=== PATIENT | female | born 1980 | race African-American/Black ===

== ENCOUNTER 2020-06-23 22:30 | Emergency (ER) | payer BC ==
--- NOTE | 2020-06-23 22:39 | EDM.PDOC ---
ED HPI GENERAL MEDICAL PROBLEM - General Chief Complaint: Behavioral/Psych Stated Complaint: intentional overdose Time Seen by Provider: 06/23/20 22:30 Source of Information: Reports: Patient, EMS, Old Records (No [facility] records available), Police ([employer] from [facility], James Garay), Other (Friend, Antonette) History Limitations: Reports: No Limitations - History of Present Illness INITIAL COMMENTS - FREE TEXT/NARRATIVE: The patient was brought to the emergency room via ambulance with EMT accompaniment with no treatment in route. Note that at about 2030 hrs. this evening the patient became extremely depressed and did take remaining medications of omeprazole, 20 mg tablets, #90, Voltaren 75 mg tablets, #28, and misoprostol 200 mcg tablets, #28, with all bottles last refilled on 04/05/2020. The patient has been noncompliant with the above medications and does not know how many pills were actually in each of these bottles. She had second thoughts immediately after taking the above medications and forced herself to vomit with vomited pills noted in the toilet and garbage can by the ekg tech upon their arrival. No recent history of abdominal pain, heartburn, nausea, diarrhea, melena, gross hematochezia, or any food intolerance, including fatty foods, etc.. The patient also denies any recent fever, cough, wheezing, dyspnea, etc.. The patient has had progressive depression and increased job stressors during the last 3 years with also patient having emotional problems secondary to multiple deaths in her family's during that time. She denies any pain or discomfort. Onset: Today, Sudden Onset Date: 06/23/20 Onset Time: 20:30 Duration: Improving Improves with: Reports: None Worsens with: Reports: None Context: Reports: Other (As above). Denies: Sick Contact, Trauma Associated Symptoms: Reports: Nausea/Vomiting (Intentional emesis as above). 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 Denies: Hard of Hearing, Impaired Vision, Otitis Media Other HEENT History: No history of diabetic retinopathy. Cardiovascular History: Reports: Hypertension, Other (See Below). Denies: Afib, Aneurysm, Arrhythmia, Blood Clots/VTE/DVT, CAD, Heart Murmur, High Cholesterol, TN, Syncope Other Cardiovascular History: She does not know her cholesterol status. Respiratory History: Reports: None. Denies: Asthma, Bronchitis, Recurrent, COPD, Intubation, Previous, PE, Pneumonia, Recurrent, Pneumothorax, Sleep Apnea, TB Gastrointestinal History: Reports: GERD. 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 Denies: Dysfunctional Uterine Bleeding, Endometriosis, Fibroids, Spontaneous : 2 Para: 2 LMP (Approximate): Other (See Below) Other MANUAL MACHINIST History: LMP on 06/13/2020. Full term without complications during pregnancies or deliveries Musculoskeletal History: Reports: Arthritis, Back Pain, Chronic, Osteoarthritis. Denies: Fracture, Gout, Neck Pain, Chronic, RA, SLE Neurological History: Reports: None. Denies: Cerebral Aneurysms, Concussion, CVA, Headaches, Chronic, Head Trauma, Migraines, MS, Neuropathy, Diabetic, Neuropathy, Peripheral, Parkinson's, Seizure, TIA Psychiatric History: Reports: Anxiety, Depression. Denies: Abuse, Victim of, ADD, ADHD, Addiction, Psych Hospitalization(s), PTSD, Suicide Attempt, Suicidal Ideation Endocrine/Metabolic History: Reports: Diabetes, Type II, Obesity/BMI 30+. Denies: Diabetes, Type I, Diabetes Mellitus, Type 3c, Hypothyroidism, IDDM Hematologic History: Reports: Anemia, Iron Deficiency. Denies: Blood Transfusion(s) Immunologic History: Denies: AIDS, HIV, SLE Oncologic (Cancer) History: Reports: None. Denies: Basal Cell Carcinoma, Breast, Cervix, Colon, Leukemia, Lymphoma, Malignant Melanoma, Non-Hodgkin's Lymphoma, Ovarian, Squamous Cell Carcinoma, Uterine Dermatologic History: Reports: None. Denies: Eczema, Psoriasis - Infectious Disease History Infectious Disease History: Reports: Chicken Pox. Denies: C-Difficile, Measles, Meningitis, Mononucleosis, MRSA, Mumps, Pertussis (Whooping Cough), Rheumatic Fever, Rubella, Scarlet Fever, Shingles, TB, VRE - Past Surgical History Head Surgeries/Procedures: Reports: None HEENT Surgical History: Reports: Oral Surgery, Other (See Below). Denies: Adenoidectomy, Cataract Surgery, Eye Surgery, Laser Surgery, LASIK, Myringotomy w Tube(s), Naso-Sinus Surgery, Tonsillectomy Other HEENT Surgeries/Procedures: Tooth extractions. Cardiovascular Surgical History: Reports: None. Denies: Varicose Respiratory Surgical History: Reports: None. Denies: Thoracentesis GI Surgical History: Reports: None. Denies: Appendectomy, Cholecystectomy, Colonoscopy, EGD, Hernia, Abdominal, Hernia, Inguinal, Hernia Repair/Other Female Surgical History: Reports: None. Denies: Section, D&C, Hysterectomy, Salpingo-Oophorectomy, Tubal Ligation Endocrine Surgical History: Reports: None. Denies: Thyroid Biopsy Neurological Surgical History: Reports: None. Denies: C-Spine, Discectomy, Laminectomy, Lumbar Spine, Sacral Spine, Spinal Fusion, Thoracic Spine, Vertebroplasty Musculoskeletal Surgical History: Reports: None. Denies: Arthroscopic Procedure, Carpal Tunnel, Ganglion Cyst, Joint Replacement, ORIF, Shoulder Surgery Oncologic Surgical History: Reports: None Dermatological Surgical History: Reports: None - Past Imaging History Past Imaging History: Reports: Ultrasound (OB ultrasounds) Social & Family History - Tobacco Use Smoking Status *Q: Current Every Day Smoker Tobacco Use Within Last Twelve Months: Cigarettes Years of Tobacco use: 28 Packs/Tins Daily: 1 Packs/Tins Daily Comment: Started smoking at age 12 with maximum use of 2 packs/day. Used Tobacco, but Quit: No Smoking Cessation Information Provided To Patient: Yes Second Hand Smoke Exposure: No Second Hand Smoke Education Provided: No - Caffeine Use Caffeine Use: Reports: Soda (12 sodas per day). Denies: Coffee, Energy Drinks, Tea - Alcohol Use Alcohol Use History: Yes Days Per Week of Alcohol Use: 3 Number of Drinks Per Day: 2 Number of Drinks Per Day Comment: Usually mixed drinks or coolers. No previous DWIs, problems with alcohol abuse, etc. Total Drinks Per Week: 6 Date of Last Drink: 06/23/20 Alcohol Use in Last Twelve Months: Yes - Recreational Drug Use Recreational Drug Use: Yes Drug Use in Last 12 Months: No Recreational Drug Type: Reports: Marijuana/Hashish (Between ages 17 and 20). 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 ED EXAM, GENERAL - Physical Exam Exam: See Below Exam Limited By: No Limitations General Appearance: WD/WN, No Apparent Distress, Anxious (Moderate) Eye Exam: Bilateral Eye: EOMI, Normal Inspection (No nystagmus), PERRL Ears: Normal External Exam, Normal Canal, Hearing Grossly Normal, Normal TMs Nose: Normal Inspection, Normal Mucosa, No Blood Throat/Mouth: Normal Inspection, Normal Lips, Normal Teeth, Normal Gums, Normal Oropharynx, Normal Voice, No Airway Compromise. No: Dysphagia, Perioral Cyanosis Head: Atraumatic, Normocephalic. No: Facial Swelling, Facial Tenderness, Sinus Tenderness Neck: Normal Inspection, Supple, Non-Tender, Full Range of Motion. No: Carotid Bruit, Lymphadenopathy (L), Lymphadenopathy (R), Thyromegaly Respiratory/Chest: No Respiratory Distress, Lungs Clear, Normal Breath Sounds, No Accessory Muscle Use, Chest Non-Tender. No: Pleural Rub, Retractions Cardiovascular: Normal Peripheral Pulses, Regular Rate, Rhythm, No Edema, No Gallop, No JVD, No Murmur, No Rub. No: Gallop/S3, Gallop/S4, Friction Rub Peripheral Pulses: 2+: Radial (L), Radial (R) GI/Abdominal: Normal Bowel Sounds, Soft, Non-Tender, No Organomegaly, No Distention, No Abnormal Bruit, No Mass, Pelvis Stable, Other (Obese). No: Guarding (Female) Exam: Deferred Rectal (Female) Exam: Deferred Back Exam: Normal Inspection, Full Range of Motion. No: CVA Tenderness (L), CVA Tenderness (R), Muscle Spasm Extremities: Normal Inspection, Normal Range of Motion, Non-Tender, No Pedal Edema, Normal Capillary Refill. No: Tony's Sign Neurological: Alert, Oriented, CN II-XII Intact, Normal Cognition, Normal Gait, No Motor/Sensory Deficits, Other (Mild intoxication) Psychiatric: Anxious (Moderate), Depressed Mood (Moderate with adequate eye contact and resolved suicidal ideation), Tearful Skin Exam: Warm, Dry, Intact, Normal Color, No Rash, Stud(s) (tongue), Tattoo(s) (Multiple). No: Diaphoretic, Wound/Incision Lymphatic: No Adenopathy Course - Vital Signs Last Recorded V/S: Last Vital Signs Temp 36.6 C 06/23/20 22:36 Pulse 69 06/23/20 23:45 Resp 19 06/23/20 23:45 BP 149/88 H 06/23/20 23:45 Pulse Ox 99 06/23/20 23:45 Vital Signs (72 hours) 06/23/20 06/23/20 06/23/20 22:36 22:57 23:15 Temperature [ 36.6 C Temporal] Pulse, 78 89 70 Peripheral [ Pulse Oximetry] Respiratory 14 16 16 Rate Blood Pressure 136/84 148/65 H 147/86 H [Right Upper Arm] O2 Sat by Pulse 100 98 100 Oximetry 06/23/20 06/23/20 06/23/20 23:16 23:30 23:45 Temperature [ Temporal] Pulse, 70 67 69 Peripheral [ Pulse Oximetry] Respiratory 16 18 19 Rate Blood Pressure 144/93 H 144/91 H 149/88 H [Right Upper Arm] O2 Sat by Pulse 100 99 99 Oximetry - Orders/Labs/Meds Labs: Laboratory Tests 06/23/20 06/23/20 06/23/20 Range/Units 22:45 22:50 22:50 WBC 6.7 (4.0-10.2) K/uL RBC 4.00 (3.77-5.09) M/uL Hgb 7.9 L (11.7-15.5) g/dL Hct 26.5 L (34.0-46.0) % MCV 66.3 L (84.0-98.0) fL MCH 19.8 L (28.2-33.3) pg MCHC 29.8 L (31.7-36.0) g/dL RDW 21.0 H (11.2-14.1) % Plt Count 465 H (150-350) K/uL Neut % (Auto) 47.4 (45.0-80.0) % Lymph % (Auto) 42.1 (10.0-50.0) % Baker % (Auto) 7.5 (2.0-14.0) % Eos % (Auto) 2.7 (0.0-5.0) % Baso % (Auto) 0.3 (0.0-2.0) % Neut # (Auto) 3.15 (1.40-7.00) K/uL Lymph # (Auto) 2.80 (0.50-3.50) K/uL Baker # (Auto) 0.50 (0.00-1.00) K/uL Eos # (Auto) 0.18 (0.00-0.50) K/uL Baso # (Auto) 0.02 (0.00-0.20) K/uL Sodium 142 (136-145) mmol/L Potassium 3.3 L (3.5-5.1) mmol/L Chloride 105 (98-107) mmol/L Carbon Dioxide 27.2 (21.0-32.0) mmol/L BUN 5 L (7-18) mg/dL Creatinine 0.64 (0.51-1.17) mg/dL Est Cr Clr Drug Dosing 115.51 mL/min Estimated GFR (MDRD) > 60 mL/min Glucose 146 H (74-106) mg/dL Calcium 8.1 L (8.5-10.1) mg/dL Magnesium 1.9 (1.8-2.4) mg/dL Iron 14 L (50-175) ug/dL TIBC 436 (250-450) ug/dL % Saturation 3.70538 Ferritin 5 L (8-388) ng/mL Total Bilirubin 0.5 (0.2-1.0) mg/dL AST 11 L (15-37) U/L ALT 19 (12-78) U/L Alkaline Phosphatase 55 (46-116) IU/L Total Protein 7.5 (6.4-8.2) g/dL Albumin 3.4 (3.4-5.0) g/dL TSH, Ultra Sensitive 0.922 (0.358-3.740) mIU/mL Specimen Type Urine Color Urine Appearance Urine pH (5.0-9.0) Ur Specific [place] (1.005-1.030) Urine Protein (NEGATIVE) mg/dL Urine Glucose (UA) (NEGATIVE) mg/dL Urine Ketones (NEGATIVE) mg/dL Urine Occult Blood (NEGATIVE) Urine Nitrite (NEGATIVE) Urine Bilirubin (NEGATIVE) Urine Urobilinogen (0.2-1.0) E.U./dL Ur Leukocyte Esterase (NEGATIVE) Urine RBC /HPF Urine WBC /HPF Ur Epithelial Cells /LPF Urine Bacteria (NONE TO FEW) /HPF Urine Opiates Screen (NEGATIVE) Ur Buprenorphine Scrn (NEGATIVE) Ur Oxycodone Screen (NEGATIVE) Ur EDDP (Meth Metab) (NEGATIVE) Ur Barbiturates Screen (NEGATIVE) Ur Tricyclics Screen (NEGATIVE) Ur Amphetamine Screen (NEGATIVE) U Methamphetamines Scrn (NEGATIVE) Urine MDMA Screen (NEGATIVE) U Benzodiazepines Scrn (NEGATIVE) U Cocaine Metab Screen (NEGATIVE) U Marijuana (THC) Screen (NEGATIVE) Ethyl Alcohol 0.135 H (0.000-0.080) g/dL 06/23/20 06/23/20 Range/Units 23:05 23:05 WBC (4.0-10.2) K/uL RBC (3.77-5.09) M/uL Hgb (11.7-15.5) g/dL Hct (34.0-46.0) % MCV (84.0-98.0) fL MCH (28.2-33.3) pg MCHC (31.7-36.0) g/dL RDW (11.2-14.1) % Plt Count (150-350) K/uL Neut % (Auto) (45.0-80.0) % Lymph % (Auto) (10.0-50.0) % Baker % (Auto) (2.0-14.0) % Eos % (Auto) (0.0-5.0) % Baso % (Auto) (0.0-2.0) % Neut # (Auto) (1.40-7.00) K/uL Lymph # (Auto) (0.50-3.50) K/uL Baker # (Auto) (0.00-1.00) K/uL Eos # (Auto) (0.00-0.50) K/uL Baso # (Auto) (0.00-0.20) K/uL Sodium (136-145) mmol/L Potassium (3.5-5.1) mmol/L Chloride (98-107) mmol/L Carbon Dioxide (21.0-32.0) mmol/L BUN (7-18) mg/dL Creatinine (0.51-1.17) mg/dL Est Cr Clr Drug Dosing mL/min Estimated GFR (MDRD) mL/min Glucose (74-106) mg/dL Calcium (8.5-10.1) mg/dL Magnesium (1.8-2.4) mg/dL Iron (50-175) ug/dL TIBC (250-450) ug/dL % Saturation Ferritin (8-388) ng/mL Total Bilirubin (0.2-1.0) mg/dL AST (15-37) U/L ALT (12-78) U/L Alkaline Phosphatase (46-116) IU/L Total Protein (6.4-8.2) g/dL Albumin (3.4-5.0) g/dL TSH, Ultra Sensitive (0.358-3.740) mIU/mL Specimen Type Urincc Urine Color Light yellow Urine Appearance Slightly cloudy Urine pH 7.0 (5.0-9.0) Ur Specific [place] 1.015 (1.005-1.030) Urine Protein Negative (NEGATIVE) mg/dL Urine Glucose (UA) Negative (NEGATIVE) mg/dL Urine Ketones Negative (NEGATIVE) mg/dL Urine Occult Blood Negative (NEGATIVE) Urine Nitrite Negative (NEGATIVE) Urine Bilirubin Negative (NEGATIVE) Urine Urobilinogen 0.2 (0.2-1.0) E.U./dL Ur Leukocyte Esterase Trace H (NEGATIVE) Urine RBC 0-5 /HPF Urine WBC 10-20 H /HPF Ur Epithelial Cells Moderate H /LPF Urine Bacteria Few (NONE TO FEW) /HPF Urine Opiates Screen Negative (NEGATIVE) Ur Buprenorphine Scrn Negative (NEGATIVE) Ur Oxycodone Screen Negative (NEGATIVE) Ur EDDP (Meth Metab) Negative (NEGATIVE) Ur Barbiturates Screen Negative (NEGATIVE) Ur Tricyclics Screen Negative (NEGATIVE) Ur Amphetamine Screen Negative (NEGATIVE) U Methamphetamines Scrn Negative (NEGATIVE) Urine MDMA Screen Negative (NEGATIVE) U Benzodiazepines Scrn Negative (NEGATIVE) U Cocaine Metab Screen Negative (NEGATIVE) U Marijuana (THC) Screen Negative (NEGATIVE) Ethyl Alcohol (0.000-0.080) g/dL Urine specimen set up for culture and sensitivity TIBC panel and ferritin level were drawn with results pending Meds: Medications Discontinued Medications Generic Name Dose Route Start Last Admin Trade Name Freq PRN Reason Stop Dose Admin Lactated Ringer's 1,000 mls @ 999 mls/hr 06/23/20 22:45 06/23/20 22:53 Ringers, Lactated IV 06/23/20 23:45 999 mls/hr .BOLUS ONE Administration Sodium Chloride 10 ml 06/23/20 22:45 Saline Flush FLUSH ASDIRECTED PRN Keep Vein Open - Radiology Interpretation Free Text/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 Departure - Departure Time of Disposition: 00:13 Disposition: Home, Self-Care 01 Clinical Impression: Mixed anxiety depressive disorder, Peptic reflux disease, Tobacco abuse counseling, Hypokalemia Diabetes mellitus Qualifiers: Diabetes mellitus type: type 2 Diabetes mellitus skilled nursing insulin use: without mangle tender cloth use Diabetes mellitus complication status: without complication Qualified Code(s): E11.9 - Type 2 diabetes mellitus without complications Iron deficiency anemia Qualifiers: Iron deficiency anemia type: other iron deficiency Qualified Code(s): D50.8 - Other iron deficiency anemias Osteoarthritis Qualifiers: Osteoarthritis location: multiple joints Osteoarthritis type: primary Qualified Code(s): M89.49 - Other hypertrophic osteoarthropathy, multiple sites - Discharge Information *PRESCRIPTION DRUG MONITORING PROGRAM REVIEWED*: Not Applicable *COPY OF PRESCRIPTION DRUG MONITORING REPORT IN PATIENT KIKE: Not Applicable Instructions: Steps to Quit Smoking, [id number], Health Risks of Smoking, Major Depressive Disorder, Adult, [id number], Suicidal Feelings: How to Help Yourself, Gastroesophageal Reflux Disease, Adult, [id number] Referrals: Bren Moseley PA-C [Primary Care Provider] - Forms: ED Department Discharge Additional Instructions: 1. You should expect a telephone call from Sadaf Nova NP, psychotherapist at [facility] in [place], sometime tomorrow for a telemedicine psychiatric consultation. 2. Coordinate medical care with the above psychotherapist and your regular provider with recommendation of starting medications for your depression at this time. 3. Continue your support system on a daily basis as discussed with consideration of additional spiritual counseling, etc. 4. Once your emotional status has improved consider tobacco cessation with information provided today. 5. Immediately after this visit verify that your cellular telephone's voicemail has been activated and is empty. Also verify that your home telephone's answering machine is operating properly and has space to receive messages. Note that it is sometimes necessary for us to be able to contact you at a later date to discuss your medical care. 6. Please remember that we are ALWAYS here for you and want to answer any questions you may have. Feel free to call the hospital any time and we call you back KRISTINA. 7. Follow-up with your regular provider tomorrow with recommended repeat CBC and basic metabolic panel. Today's TIBC panel and ferritin level will be faxed to that office. Discuss your current emotional status, pill overdose, treatment plan as above, etc. at that time. 8. Hold your diclofenac acid for now with no additional aspirin, ibuprofen, Aleve, etc. until otherwise directed by your regular provider. You may use Tylenol 650 mg by mouth every 4 hours when necessary as directed. 9. Strict compliance with your medical therapy in the future as discussed. 10. Further GI work-up with your regular providers depending on your clinical course with hemoglobin of only 7.9 today. - Problem List & Annotations (1) Mixed anxiety depressive disorder SNOMED Code(s): 912599876 Code(s): F41.8 - OTHER SPECIFIED ANXIETY DISORDERS Status: Acute Priority: High Annotation/Comment:: Suicidal attempt with pill overdose as above with patient forcing emesis and having immediate second thoughts. She denies any suicidal ideation or plan at this time, however is requesting initiation of counseling, medications, etc. Psychotherapy counseling has been arranged as per discharge instructions. Patient often laughing with her friend in the emergency room with admission for psychiatric care not indicated at this time. Emotional support provided. (2) Iron deficiency anemia SNOMED Code(s): 14330294 Code(s): D50.9 - IRON DEFICIENCY ANEMIA, UNSPECIFIED Status: Chronic Priority: Medium Annotation/Comment:: No significant anemia today. Patient has not been compliant with her iron supplementation secondary to financial issues with the patient apparently previously prescribed prescription iron. OTC iron supplementation per instructions from your regular provider recommended. TIBC panel and ferritin level were drawn today with results pending and to be sent to her regular provider. Further GI work-up including possible EGD, stool for H. pylori antigen, colonoscopy, etc. depending on her clinical course. Qualifiers: Iron deficiency anemia type: other iron deficiency Qualified Code(s): D50.8 - Other iron deficiency anemias (3) Peptic reflux disease SNOMED Code(s): 262840320 Code(s): K21.9 - GASTRO-ESOPHAGEAL REFLUX DISEASE WITHOUT ESOPHAGITIS Status: Chronic Priority: Medium Annotation/Comment:: Moderate control by patient history with significant anemia as above. Note medication noncompliance. Close follow-up by regular provider as above. (4) Diabetes mellitus SNOMED Code(s): 16943479 Code(s): E11.9 - TYPE 2 DIABETES MELLITUS WITHOUT COMPLICATIONS Status: Acute Priority: Medium Annotation/Comment:: The patient has been noncompliant with her metformin. Medication compliance was strongly encouraged. Note Accu-Chek of 145 mg percent by ekg tech on the scene with repeat Accu-Chek here of 138 mg percent shortly after patient's arrival to this facility. She did not take metformin as part of her overdose today. Weight loss moderation advisable with close follow-up by her regular provider. Qualifiers: Diabetes mellitus type: type 2 Diabetes mellitus mangle tender cloth insulin use: without skilled nursing use Diabetes mellitus complication status: without complication Qualified Code(s): E11.9 - Type 2 diabetes mellitus without complications (5) Hypokalemia SNOMED Code(s): 19308677 Code(s): E87.6 - HYPOKALEMIA Status: Acute Priority: Medium Onset Date: 06/23/20 Annotation/Comment:: Lactated Ringer's given in the emergency room as above. Close follow-up by regular provider. (6) Osteoarthritis SNOMED Code(s): 725347435 Code(s): M19.90 - UNSPECIFIED OSTEOARTHRITIS, UNSPECIFIED SITE Status: Chronic Priority: Medium Annotation/Comment:: Stable by history. Hold Voltaren, NSAIDs, etc. at this time secondary to her anemia as above. Qualifiers: Osteoarthritis location: multiple joints Osteoarthritis type: primary Qualified Code(s): M89.49 - Other hypertrophic osteoarthropathy, multiple sites (7) Tobacco abuse counseling SNOMED Code(s): 565957324, 253884337, 549185854 Code(s): Z71.6 - TOBACCO ABUSE COUNSELING Status: Chronic Priority: Medium Annotation/Comment:: Tobacco cessation information provided. - Problem List Review Problem List Initiated/Reviewed/Updated: Yes - Assessment/Plan Assessment:: As above Plan: As above. Extensive precautions were given to the patient and her friend, who are in agreement with the treatment plan. See Patient Instructions for further treatment and plan.
[2020-06-23] MEDS ORDERED: Lactated Ringers 1,000 ML IV ONE (22:45)
[2020-06-23] MEDS ORDERED: Sodium Chloride 0.9% 10 ML Syringe FLUSH PRN (22:45)
[2020-06-23 23:22] LABS: CHLORIDE,CL 105 mmol/L (98-107); SODIUM,NA 142 mmol/L (136-145)
[2020-06-23 23:28] LABS: BARBITURATE SCREEN,URINE NEGATIVE (NEGATIVE); BENZODIAZEPINES SCREEN,URINE NEGATIVE (NEGATIVE); EDDP,URINE SCREEN NEGATIVE (NEGATIVE); TCA SCREEN,URINE NEGATIVE (NEGATIVE); THC SCREEN,URINE 50 NG/ML NEGATIVE (NEGATIVE)
== END 2020-06-24 00:13 | disposition home or self-care (01) ==
LOC: LL.ED 22:30
DX: K21.9 Gastro-esophageal reflux disease without esophagitis (principal); E87.6 Hypokalemia; F41.8 Other specified anxiety disorders; E11.9 Type 2 diabetes mellitus without complications; D50.8 Other iron deficiency anemias; M89.49 Other hypertrophic osteoarthropathy, multiple sites; I10 Essential (primary) hypertension; F17.210 Nicotine dependence, cigarettes, uncomplicated; Z71.0 Person encountering health services to consult on behalf of another person; Z88.8 Allergy status to other drugs, medicaments and biological substances; Z79.84 Long term (current) use of oral hypoglycemic drugs; Z79.899 Other long term (current) drug therapy
CPT/HCPCS: 36415; 80053; 80305; 80307; 81001; 82728; 83540; 83550; 83735; 84443; 85025; 87086; 96360; 99285; J7120

== ENCOUNTER 2022-08-10 10:23 | Emergency (ER) | payer BC ==
[2022-08-10] MEDS: Orphenadrine 60 MG/2 ML Inj IM ONE (11:07)
[2022-08-10 11:09] LABS: CHLORIDE,CL 101 mmol/L (98-107); SODIUM,NA 135 mmol/L (136-145)
[2022-08-10 11:10] LABS: ANION GAP 14.2 meq/L (7-15); ESTIMATED GFR 96 mL/min (>=60)
[2022-08-10] MEDS: traMADol 50 MG Tab PO ONE (11:42)
[2022-08-10 17:03] VITALS: BP 125/69; PULSE 78
== END 2022-08-10 14:40 | disposition home or self-care (01) ==
LOC: LL.ED 10:23
DX: M54.50 Low back pain, unspecified (principal); D50.8 Other iron deficiency anemias; I10 Essential (primary) hypertension; E11.9 Type 2 diabetes mellitus without complications; E66.9 Obesity, unspecified; Z68.30 Body mass index [BMI] 30.0-30.9, adult; Z79.84 Long term (current) use of oral hypoglycemic drugs; Z79.899 Other long term (current) drug therapy
CPT/HCPCS: 36415; 71046; 72100; 80053; 81001; 81025; 82272; 82550; 82728; 83615; 84484; 85025; 86140; 86850; 86900; 86901; 93005; 93010; 96372; 99284; 99285; A9270-GY; J2360